=== PATIENT | male | born 1955 | race African-American/Black ===

== ENCOUNTER 2016-06-25 18:15 | Emergency (ER) | payer OTHER ==
[~2016-06-25] VITALS: Ht 167.6 cm; Wt 113.4 kg
[~2016-06-25 18:15] MED LIST: AMLO10TA2 PO; ATOR20TA58 PO; AZIT250T6 PO; BENZ100C PO; CETI10TA22 PO; CYCL10TA2 PO; HYDR115S2 PO; HYDR12.53 PO; LISI1TAB5 PO; LORA10TA3 PO; METO50TA2 PO; NITR0.3T SL; OMEP20TA63 PO; OMEP40CA5 PO; PRED50TA PO; PROAIR HFA8.5 GM IH; PROAIR HFA8.5 GM INH; PROM25TA10 PO
[2016-06-25] MEDS ORDERED: IV NORMAL SALINE 1000ML BAG 1,000 ML IV SCH (19:09)
[2016-06-25] MEDS ORDERED: ONDANSETRON PF 4 MG/2 ML VIAL. IV ONE (19:15)
[2016-06-25] MEDS ORDERED: FENTANYL PF 100 MCG/2 ML VIAL. IV PRN (19:15)
[2016-06-25] MEDS ORDERED: NITROGLYCERIN SUBLINGUAL 0.4 MG BOTTLE OF 25. SL PRN (19:15)
--- NOTE | 2016-06-25 19:15 | PHYS DOC ---
Past Medical History Past Medical History: Arthritis, Asthma, Bronchitis, Diabetes-Type I, GERD, Hypertension Additional Past Medical Histor: CARPAL TUNNEL, GOUT Past Surgical History: Other Additional Past Surgical Histo: "ABD SURGERY" Alcohol Use: Occasionally Drug Use: None Adult General Chief Complaint Chief Complaint: CHEST PAIN HPI HPI Patient is a 60 year old male who presents with complaint of chest pain. Patient states this symptoms started 2 hours prior to arrival. Patient states that his pain is sharp and radiates towards his neck and left shoulder. Patient denies associated nausea or shortness of breath with symptoms. Patient states currently his pain level is 5 out of 10 but states it was worse upon onset. Patient denies history of similar symptoms. Patient has history of hypertension and diabetes mellitus type 2. Patient denies any associated shortness of breath or nausea with his symptoms. Patient took his blood pressure medication and a full strength aspirin prior to arrival but states that this did not help his symptoms. Patient denies any recent cardiac stress testing. Review of Systems Review of Systems Constitutional: Denies fever or chills [] Eyes: Denies change in visual acuity, redness, or eye pain [] HENT: Denies nasal congestion or sore throat [] Respiratory: Denies cough or shortness of breath [] Cardiovascular: Chest pain, denies edema [] GI: Denies abdominal pain, nausea, vomiting, bloody stools or diarrhea [] : Denies dysuria or hematuria [] Musculoskeletal: Denies back pain or joint pain [] Integument: Denies rash or skin lesions [] Neurologic: Denies headache, focal weakness or sensory changes [] Current Medications Current Medications Current Medications Medications (Trade) Dose Ordered Sig/Kamaljit Start Time Stop Time Status Last Admin Dose Admin Fentanyl Citrate 50 mcg 50 mcg PRN Q15MIN PRN 06/25/16 19:15 06/26/16 19:14 Nitroglycerin (Nitrostat) 0.4 mg PRN Q5MIN PRN 06/25/16 19:15 06/26/16 19:14 06/25/16 19:29 0.4 MG Ondansetron HCl (Zofran) 4 mg 1X ONCE 06/25/16 19:15 06/25/16 19:16 DC 06/25/16 19:27 4 MG Sodium Chloride (Iv Sodium Chloride 0.9% 1000ml Bag) 1,000 ml @ 100 mls/hr Q10H 06/25/16 19:09 06/26/16 05:08 06/25/16 19:27 100 MLS/HR Allergies Allergies Allergies Coded Allergies Type Severity Reaction Last Updated Verified No Known Drug Allergies 03/25/13 No Physical Exam Physical Exam Constitutional: Alert, obese, afebrile, hypertensive, appears in mild to moderate discomfort. [] HENT: Normocephalic, atraumatic, bilateral external ears normal, oropharynx moist, no oral exudates, nose normal. [] Eyes: PERRLA, EOMI, conjunctiva normal, no discharge. [] Neck: Normal range of motion, no tenderness, supple, no stridor. [] Cardiovascular:Heart rate regular rhythm, no murmur [] Lungs & Thorax: Bilateral breath sounds clear to auscultation [] Abdomen: Bowel sounds normal, soft, no tenderness, no masses, no pulsatile masses. [] Skin: Warm, dry, no erythema, no rash. [] Back: No tenderness, no CVA tenderness. [] Extremities: No tenderness, no cyanosis, no clubbing, ROM intact, no edema. [] Neurologic: Alert and oriented X 3, normal motor function, normal sensory function, no focal deficits noted. [] Current Patient Data Vital Signs Vital Signs Date Time Temp Pulse Resp B/P Pulse Ox O2 Delivery O2 Flow Rate FiO2 06/25/16 19:55 80 15 163/71 96 Room Air 06/25/16 18:30 98.5 98.5 Lab Values Laboratory Tests Test 06/25/16 19:05 06/25/16 19:35 06/25/16 20:47 White Blood Count 8.0x10^3/uL (4.0-11.0) Red Blood Count 4.64x10^6/uL (4.30-5.70) Hemoglobin 13.7g/dL (13.0-17.5) Hematocrit 40.5% (39.0-53.0) Mean Corpuscular Volume 87fL (79-100) Mean Corpuscular Hemoglobin 30pg (25-35) Mean Corpuscular Hemoglobin Concent 34g/dL (31-37) Red Cell Distribution Width 13.9% (11.5-14.5) Platelet Count 326x10^3/uL (140-400) Neutrophils (%) (Auto) 44% (31-73) Lymphocytes (%) (Auto) 44% (24-48) Monocytes (%) (Auto) 8% (0-9) Eosinophils (%) (Auto) 3% (0-3) Basophils (%) (Auto) 1% (0-3) Neutrophils # (Auto) 3.6x10^3uL (1.8-7.7) Lymphocytes # (Auto) 3.5x10^3/uL (1.0-4.8) Monocytes # (Auto) 0.6x10^3/uL (0.0-1.1) Eosinophils # (Auto) 0.3x10^3/uL (0.0-0.7) Basophils # (Auto) 0.1x10^3/uL (0.0-0.2) Sodium Level 142mmol/L (136-145) Potassium Level 3.8mmol/L (3.5-5.1) Chloride Level 103mmol/L (98-107) Carbon Dioxide Level 27mmol/L (21-32) Anion Gap 12 (6-14) Blood Urea Nitrogen 12mg/dL (8-26) Creatinine 1.0mg/dL (0.7-1.3) Estimated GFR (Cockcroft-Gault) 92.5 Glucose Level 72mg/dL (70-99) Calcium Level 9.1mg/dL (8.5-10.1) Magnesium Level 2.0mg/dL (1.8-2.4) Total Bilirubin 0.4mg/dL (0.2-1.0) Direct Bilirubin 0.1mg/dL (0.0-0.2) Aspartate Amino Transferase (AST) 25U/L (15-37) Alanine Aminotransferase (ALT) 32U/L (16-63) Alkaline Phosphatase 75U/L (46-116) Creatine Kinase 967U/L (39-308) H Creatine Kinase MB (Mass) 6.1ng/mL (0.0-3.6) H Creatine Kinase MB Relative Index 0.6% (0-4) Troponin I Quantitative < 0.017ng/mL (0.000-0.055) < 0.017ng/mL (0.000-0.055) EY-Fbc-R-Type Natriuretic Peptide 35pg/mL (0-124) Total Protein 8.0g/dL (6.4-8.2) Albumin 4.2g/dL (3.4-5.0) Lipase 319U/L (73-393) Urine Collection Type Unknown Urine Color Yellow Urine Clarity Clear Urine pH 7.5 Urine Specific [place] 1.015 Urine Protein Negativemg/dL (NEG-TRACE) Urine Glucose (UA) Negativemg/dL (NEG) Urine Ketones (Stick) Negativemg/dL (NEG) Urine Blood Negative (NEG) Urine Nitrite Negative (NEG) Urine Bilirubin Negative (NEG) Urine Urobilinogen Dipstick 1.0mg/dL (0.2 mg/dL) Urine Leukocyte Esterase Negative (NEG) Urine RBC 0/HPF (0-2) Urine WBC 0/HPF (0-4) Urine Squamous Epithelial Cells Occ/LPF Urine Bacteria 0/HPF (0-FEW) Urine Opiates Screen Neg (NEG) Urine Methadone Screen Neg (NEG) Urine Barbiturates Neg (NEG) Urine Phencyclidine Screen Neg (NEG) Urine Amphetamine/Methamphetamine Neg (NEG) Urine Benzodiazepines Screen Neg (NEG) Urine Cocaine Screen Neg (NEG) Urine Cannabinoids Screen Neg (NEG) Urine Ethyl Alcohol Neg (NEG) Laboratory Tests 06/25/16 19:05 Laboratory Tests 06/25/16 19:05 EKG EKG Interpreted by me: Heart rate 87, sinus rhythm, normal intervals, normal axis, no acute ST/T-wave abnormalities present [] Radiology/Procedures Radiology/Procedures One view AP chest x-ray interpreted by me: No infiltrate, no effusion, normal cardiac silhouette [] Course & Med Decision Making Course & Med Decision Making Pertinent Labs and Imaging studies reviewed. (See chart for details) The patient was given nitroglycerin in the emergency department which fully resolved the patient's pain symptoms. After speaking with the patient, he stated that he did not want to be admitted to the hospital and would like to go home. Considering the patient's pain has completely resolved at this time and since the patient has agreed to follow-up in 2-3 days with cardiology for follow -up and outpatient stress testing, the patient was discharged from the emergency department with recommendation to take full strength daily aspirin and patient was given a prescription for nitroglycerin. The patient was referred to Dr. Rivers for follow-up in 2-3 days and recommended to return to emergency department for any worsening symptoms. Patient voiced understanding and in agreement with treatment plan. Dragon Disclaimer Dragon Disclaimer This electronic medical record was generated, in whole or in part, using a voice recognition dictation system. Departure Departure Impression: Primary Impression: Chest pain Additional Impression: Essential hypertension Disposition: HOME, SELF-CARE Condition: STABLE Referrals: UNKNOWN PCP NAME (PCP) Patient Instructions: Chest Pain (Nonspecific) Additional Instructions: Follow-up in 2-[address] Rivers of cardiology for outpatient stress testing. Be sure to take a full strength 325 mg aspirin once a day until you have followed up with cardiology. Return to the emergency department for any worsening symptoms. Scripts Nitroglycerin (NITROGLYCERIN SubLingual)0.4 Mg Tab.subl0.4 Mg SL PRN Q5MIN PRN CHEST PAIN #1 BOTTLE Call 911 and come to the emergency department if you continue to have pain after 3 doses. Prov:ELEONORA RUTLEDGE MD 06/25/16 Problem Qualifiers Primary Impression: Chest pain Chest pain type: unspecified Qualified Code: R07.9 - Chest pain, unspecified ELEONORA RUTLEDGE MD Jun 25, 2016 19:15
[2016-06-25 19:19] LABS: BASO # 0.1 x10^3/uL (0.0-0.2); BASO % 1 % (0-3); EOS % 3 % (0-3); HEMATOCRIT 40.5 % (39.0-53.0); HEMOGLOBIN 13.7 g/dL (13.0-17.5); LYMPH # 3.5 x10^3/uL (1.0-4.8); LYMPH % 44 % (24-48); MEAN CORPUSCULAR HEMOGLOBIN 30 pg (25-35); MEAN CORPUSCULAR HGB CONC 34 g/dL (31-37); MEAN CORPUSCULAR VOLUME 87 fL (79-100); MONO % 8 % (0-9); NEUT % 44 % (31-73); PLATELET COUNT 326 x10^3/uL (140-400); RED BLOOD COUNT 4.64 x10^6/uL (4.30-5.70); RED CELL DISTRIBUTION WIDTH 13.9 % (11.5-14.5)
[2016-06-25 19:32] LABS: CALCIUM 9.1 mg/dL (8.5-10.1); GFR 92.5; POTASSIUM 3.8 mmol/L (3.5-5.1)
[2016-06-25 19:38] LABS: ALBUMIN 4.2 g/dL (3.4-5.0); DIRECT BILIRUBIN 0.1 mg/dL (0.0-0.2); TOTAL BILIRUBIN 0.4 mg/dL (0.2-1.0)
[2016-06-25 19:51] LABS: BILIRUBIN,URINE NEGATIVE (NEG); GLUCOSE,URINE NEGATIVE (NEG); NITRITE,URINE NEGATIVE (NEG); PH,URINE 7.5; PROTEIN,URINE NEGATIVE (NEG-TRACE)
[2016-06-25 19:52] LABS: CKMB INDEX 0.6 % (0-4); CKMB MASS 6.1 ng/mL (0.0-3.6)
[2016-06-25 19:56] LABS: BARBITURATES NEG (NEG); BENZODIAZEPINES NEG (NEG); CANNABINOIDS NEG (NEG); COCAINE NEG (NEG); METHADONE NEG (NEG); OPIATES NEG (NEG); PHENCYCLIDINE NEG (NEG)
[2016-06-25 19:58] LABS: ETHANOL, URINE NEG (NEG)
[2016-06-25 19:59] LABS: BACTERIA,URINE 0 /HPF (0-FEW); RBC,URINE 0 /HPF (0-2); SQUAMOUS EPITHELIAL CELL,UR OCC /LPF; WBC,URINE 0 /HPF (0-4)
[2016-06-25 21:23] LABS: CKMB INDEX 0.6 % (0-4)
[2016-06-25] MEDS ORDERED: NITR0.4T6 SL (21:33)
[2016-06-25 22:00] VITALS: BP 158/79
--- NOTE | 2016-06-26 06:25 | EKG ---
[facility] [address] [place] [address] Test Date: 2016-06-25 Test Time: 18:24:17 Pat Name: RANDY MEDRANO Department: Room: Gender: M Verifier: : [id number] Requested By: ELEONORA RUTLEDGE Order Number: [id number] Reading MD: Elise Mendieta Measurements Intervals [place] Rate: 87 P: 64 IN: 166 QRS: 12 QRSD: 84 T: 32 QT: 350 QTc: 422 Interpretive Statements SINUS RHYTHM LEFT ATRIAL ABNORMALITY ABNORMAL ECG RI6.01 Compared to ECG 06/18/2015 23:31:35 Atrial abnormality now present Electronically Signed On 06-28-2016 18:47:50 CDT by Elise Mendieta
--- NOTE | 2016-06-26 07:54 | RAD ---
Indication chest pain. Hypertension. Diabetes. A single view of the chest is compared to a study 03/10/2016. Heart size is slightly enlarged but unchanged relative to the previous exam. There is no gross congestive heart failure. An acute parenchymal infiltrate or significant change in the appearance of the chest compared to the previous exam is not seen. IMPRESSION: No acute finding. No significant change
== END 2016-06-25 22:09 | disposition home or self-care (01) ==
LOC: ER 18:15
DX: R07.89 Other chest pain (principal); I10 Essential (primary) hypertension; E66.9 Obesity, unspecified; E11.9 Type 2 diabetes mellitus without complications; M19.90 Unspecified osteoarthritis, unspecified site; J45.909 Unspecified asthma, uncomplicated; K21.9 Gastro-esophageal reflux disease without esophagitis; M10.9 Gout, unspecified; Z68.41 Body mass index [BMI] 40.0-44.9, adult; Z79.899 Other long term (current) drug therapy
CPT/HCPCS: 36415; 71010; 80048; 80076; 80305; 80320; 81001; 82553; 83690; 83735; 83880; 84484; 85027; 93005; 96361; 96374; 99285; J2405; J7030; G0481

== ENCOUNTER 2016-09-24 13:03 | Emergency (ER) | payer OTHER ==
[~2016-09-24] VITALS: Ht 167.6 cm; Wt 104.3 kg
[~2016-09-24 13:03] MED LIST changes: +NITR0.4T22 SL
--- NOTE | 2016-09-24 13:44 | EKG ---
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
--- NOTE | 2016-09-24 14:03 | RAD ---
Portable AP upright view CXR: Clinical indications: Shortness of air. Leg swelling for one month. Comparison: June 25, 2016. Findings: There is a chronic infiltrate within the medial left lung base versus a hiatal hernia. No pleural effusion or pneumothorax is seen. The heart size, pulmonary vasculature, mediastinum and both chanel are otherwise stable.. Impression: Chronic medial left lung base infiltrate versus a hiatal hernia. No new finding..
[2016-09-24 14:05] LABS: BASO # 0.1 x10^3/uL (0.0-0.2); BASO % 1 % (0-3); EOS % 7 % (0-3); HEMATOCRIT 36.3 % (39.0-53.0); HEMOGLOBIN 12.2 g/dL (13.0-17.5); LYMPH # 3.1 x10^3/uL (1.0-4.8); LYMPH % 35 % (24-48); MEAN CORPUSCULAR HEMOGLOBIN 29 pg (25-35); MEAN CORPUSCULAR HGB CONC 34 g/dL (31-37); MEAN CORPUSCULAR VOLUME 85 fL (79-100); MONO % 5 % (0-9); NEUT % 53 % (31-73); PLATELET COUNT 369 x10^3/uL (140-400); RED BLOOD COUNT 4.27 x10^6/uL (4.30-5.70); RED CELL DISTRIBUTION WIDTH 13.5 % (11.5-14.5)
[2016-09-24 14:17] LABS: CREATININE 1.2 mg/dL (0.7-1.3); GFR 74.7; POTASSIUM 3.7 mmol/L (3.5-5.1)
[2016-09-24 14:23] LABS: ALBUMIN 3.9 g/dL (3.4-5.0); TOTAL BILIRUBIN 0.2 mg/dL (0.2-1.0); TOTAL PROTEIN 7.8 g/dL (6.4-8.2)
[2016-09-24 14:30] LABS: CKMB MASS 3.7 ng/mL (0.0-3.6)
--- NOTE | 2016-09-24 14:43 | RAD ---
Indication: Left leg swelling. Grayscale, color-flow and duplex Doppler evaluation of the left lower extremity deep venous system was performed. There is no evidence of a left lower extremity DVT. The left lower extremity deep venous system demonstrates normal compressibility with normal response to augmentation and Valsalva. No fluid collection is seen. There is an enlarged lymph node in the left groin measuring 3.0 x 1.2 x 2.5 cm, indeterminate. Impression: 1. No evidence of left lower extremity DVT. 2. Enlarged left groin lymph node, indeterminate.
[2016-09-24 15:27] VITALS: BP 141/73
[2016-09-24] MEDS ORDERED: DOXY100T PO (15:29)
[2016-09-24] MEDS ORDERED: HYDR-971 PO (15:29)
--- NOTE | 2016-09-24 15:29 | PHYS DOC ---
Past Medical History Past Medical History: Arthritis, Asthma, Bronchitis, Diabetes-Type I, GERD, Hypertension, Other Additional Past Medical Histor: CARPAL TUNNEL, GOUT Past Surgical History: Other Additional Past Surgical Histo: "ABD SURGERY" Additional Information: 0.25 ppd Alcohol Use: Occasionally Drug Use: None Adult General Chief Complaint Chief Complaint: LOWER EXTREMITY SWELLING HPI HPI Patient is a 61 year old male brought to the ED by his caregiver with the complaint of left leg pain and swelling. Previously, both of his legs were swollen, now it is just his left leg. He thinks it's been swollen for 2 or 3 months, worse for about one month and the pain has been for about 1 month. He has not specifically had fever or chills but he has been cold at times. He's had some shortness of air for 1 month, no chest pain. He's had a little cough that is sometimes productive of a little bit of phlegm. He does have COPD. Patient's primary care provider is at . He has been taking his medications as prescribed. Medications include metformin Ibuprofen 800 mg Amlodipine 10 mg Atorvastatin 40 mg Cetirizine Lisinopril Pantoprazole Amitriptyline Hydrochlorothiazide Spiriva and pro-air inhalers Review of Systems Review of Systems Constitutional: Denies fever or chills but he has felt cold Eyes: Denies change in visual acuity, redness, or eye pain [] HENT: Denies nasal congestion or sore throat [] Respiratory: Mild cough and mild shortness of air Cardiovascular: Denies chest pain GI: Denies abdominal pain, nausea, vomiting, bloody stools or diarrhea [] : Denies dysuria or hematuria [] Musculoskeletal: As in history of present illness Integument: States he had some redness of the skin on his penis Neurologic: Denies headache, focal weakness or sensory changes [] Current Medications Current Medications Current Medications Medications (Trade) Dose Ordered Sig/Kamaljit Start Time Stop Time Status Last Admin Dose Admin Acetaminophen/ Hydrocodone Bitart (Lortab 7.5/325) 1 tab 1X ONCE 09/24/16 15:30 09/24/16 15:31 DC Doxycycline Hyclate (Vibra-Tab) 100 mg 1X ONCE 09/24/16 15:30 09/24/16 15:31 DC Allergies Allergies Allergies Coded Allergies Type Severity Reaction Last Updated Verified codeine Allergy Mild "irritates tip of penis" 09/24/16 Yes Physical Exam Physical Exam Constitutional: Well developed, well nourished, no acute distress, non-toxic appearance. Alert, appropriate, mentating normally. HENT: Normocephalic, atraumatic, bilateral external ears normal, nose normal. [ ] Eyes: conjunctiva normal, no discharge. [] Neck: Normal range of motion, no stridor. [] Cardiovascular:Heart rate regular rhythm, no murmur [] Lungs & Thorax: Clear to auscultation without rales or wheezes Abdomen: Bowel sounds normal, soft, no tenderness, no masses, no pulsatile masses. [] Skin: Warm, dry, no erythema, no rash. [] Extremities: Left leg: Knee and above is normal. Below the knee is mildly swollen with increased warmth, increased redness, tender to palpation. There is evidence of chronic swelling with skin thickening and discoloration. Foot is not involved with the swelling or warmth. Distal neurovascular intact. Right leg is unremarkable without swelling, warmth, or redness. Neurologic: Alert and oriented X 3, normal motor function, normal sensory function, no focal deficits noted. [] Current Patient Data Vital Signs Vital Signs Date Time Temp Pulse Resp B/P (MAP) Pulse Ox O2 Delivery O2 Flow Rate FiO2 09/24/16 15:27 74 21 141/73 (95) 92 Room Air 09/24/16 13:10 97.8 97.8 Lab Values Laboratory Tests Test 09/24/16 13:55 White Blood Count 9.0 x10^3/uL (4.0-11.0) Red Blood Count 4.27 x10^6/uL (4.30-5.70) L Hemoglobin 12.2 g/dL (13.0-17.5) L Hematocrit 36.3 % (39.0-53.0) L Mean Corpuscular Volume 85 fL (79-100) Mean Corpuscular Hemoglobin 29 pg (25-35) Mean Corpuscular Hemoglobin Concent 34 g/dL (31-37) Red Cell Distribution Width 13.5 % (11.5-14.5) Platelet Count 369 x10^3/uL (140-400) Neutrophils (%) (Auto) 53 % (31-73) Lymphocytes (%) (Auto) 35 % (24-48) Monocytes (%) (Auto) 5 % (0-9) Eosinophils (%) (Auto) 7 % (0-3) H Basophils (%) (Auto) 1 % (0-3) Neutrophils # (Auto) 4.7 x10^3uL (1.8-7.7) Lymphocytes # (Auto) 3.1 x10^3/uL (1.0-4.8) Monocytes # (Auto) 0.4 x10^3/uL (0.0-1.1) Eosinophils # (Auto) 0.6 x10^3/uL (0.0-0.7) Basophils # (Auto) 0.1 x10^3/uL (0.0-0.2) D-Dimer (Babs) 0.53 ug/mlFEU (0.00-0.50) H Sodium Level 138 mmol/L (136-145) Potassium Level 3.7 mmol/L (3.5-5.1) Chloride Level 101 mmol/L (98-107) Carbon Dioxide Level 30 mmol/L (21-32) Anion Gap 7 (6-14) Blood Urea Nitrogen 15 mg/dL (8-26) Creatinine 1.2 mg/dL (0.7-1.3) Estimated GFR (Cockcroft-Gault) 74.7 BUN/Creatinine Ratio 13 (6-20) Glucose Level 181 mg/dL (70-99) H Calcium Level 9.0 mg/dL (8.5-10.1) Total Bilirubin 0.2 mg/dL (0.2-1.0) Aspartate Amino Transferase (AST) 21 U/L (15-37) Alanine Aminotransferase (ALT) 33 U/L (16-63) Alkaline Phosphatase 92 U/L (46-116) Creatine Kinase 710 U/L (39-308) H Creatine Kinase MB (Mass) 3.7 ng/mL (0.0-3.6) H Creatine Kinase MB Relative Index 0.5 % (0-4) Troponin I Quantitative 0.023 ng/mL (0.000-0.055) [id number]-[id number]-S-Type Natriuretic Peptide 27 pg/mL (0-124) Total Protein 7.8 g/dL (6.4-8.2) Albumin 3.9 g/dL (3.4-5.0) Albumin/Globulin Ratio 1.0 (1.0-1.7) Laboratory Tests 09/24/16 13:55 Laboratory Tests 09/24/16 13:55 EKG EKG 12-lead EKG read by me. Sinus rhythm. Heart rate 84. There are no acute ST or T wave changes indicative of ischemia or infarction. No STEMI. 1318 [] Radiology/Procedures Radiology/Procedures One view portable chest x-ray read by the radiologist. No acute findings. No pulmonary edema. There is a chronic infiltrate in the medial left lung base versus a hiatal hernia, unchanged since May. Venous Doppler of the left lower extremity. Read by the radiologist. No evidence of DVT. Enlarged left groin lymph node. [] Course & Med Decision Making Course & Med Decision Making Pertinent Labs and Imaging studies reviewed. (See chart for details) 61-year-old male presents with one-month history of pain and swelling to the left leg. Evaluation negative for DVT. It's warm and red, we will treat for cellulitis. There is no evidence of congestive heart failure on labs or chest x- ray. The swelling and pain or unilateral. There is a component of pain and he also has warmth and enlarged groin lymph node on ultrasound so I believe cellulitis is the likely diagnosis. Discussed this with the patient. We will start him on doxycycline. See instructions for plan [] Dragyoung Disclaimer Dragon Disclaimer This electronic medical record was generated, in whole or in part, using a voice recognition dictation system. Departure Departure Impression: Primary Impression: Cellulitis of left leg Disposition: 01 HOME, SELF-CARE Condition: STABLE Referrals: NO PCP (PCP) Patient Instructions: Cellulitis, [id number] Additional Instructions: Stay off of your leg as much as possible and keep it elevated as much as possible to help with the swelling. You had one dose of antibiotic here, your next dose is due at bedtime tonight. After that, take one every 12 hours. Scripts Hydrocodone/Apap 5-325 (NORCO 5-325 TABLET) 1 Each Tablet 1-2 TAB PO Q4-6HRS for left leg pain, cellulitis, #12 TAB Prov: TATIANA CUELLAR MD 09/24/16 Doxycycline Hyclate (DOXYCYCLINE HYCLATE) 100 Mg Tablet 1 TAB PO BID for cellulitis, #20 TAB Prov: TATIANA CUELLAR MD 09/24/16 TATIANA CUELLAR MD Sep 24, 2016 15:29
[2016-09-24] MEDS ORDERED: HYDROcodone/APAP 7.5/325MG 1 TAB TABLET PO ONE (15:30)
[2016-09-24] MEDS ORDERED: DOXYCYCLINE HYCLATE 100 MG TABLET PO ONE (15:30)
== END 2016-09-24 15:47 | disposition home or self-care (01) ==
LOC: ER 13:03
DX: L03.116 Cellulitis of left lower limb (principal); J44.9 Chronic obstructive pulmonary disease, unspecified; M19.90 Unspecified osteoarthritis, unspecified site; K21.9 Gastro-esophageal reflux disease without esophagitis; I10 Essential (primary) hypertension; M10.9 Gout, unspecified; E10.9 Type 1 diabetes mellitus without complications; F17.200 Nicotine dependence, unspecified, uncomplicated; Z88.5 Allergy status to narcotic agent
CPT/HCPCS: 36415; 71010; 80053; 82553; 83880; 84484; 85027; 85379; 93005; 93971; 99285-25

== ENCOUNTER 2016-10-02 15:53 | Emergency (ER) | payer OTHER ==
[~2016-10-02] VITALS: Ht 167.6 cm; Wt 104.3 kg
[~2016-10-02 15:53] MED LIST changes: +DOXY100T PO; +HYDR-971 PO
[2016-10-02 16:11] VITALS: BP 139/80
[2016-10-02] MEDS ORDERED: DOXY100T PO (16:53)
--- NOTE | 2016-10-02 16:53 | PHYS DOC ---
Past Medical History Past Medical History: Arthritis, Asthma, Bronchitis, Diabetes-Type II, GERD, Hypertension, Other Additional Past Medical Histor: CARPAL TUNNEL, GOUT,CELLULITIS Past Surgical History: Other Additional Past Surgical Histo: "ABD SURGERY" Additional Information: 3 TO 4 CIGARETTES A DAY Alcohol Use: Occasionally Drug Use: None Adult General Chief Complaint Chief Complaint: MEDICATION REFILL HPI HPI Patient is a 61 year old male who I saw on 09/24 with left leg cellulitis, returns stating that his cellulitis is a lot better but not completely gone and he is concerned because he is almost out of antibiotics. His pain right now is an 8 out of 10. He states his leg is a lot better. Denies fever or chills, denies nausea or vomiting. He's been trying to evade as much as he can. He has been taking his antibiotic as prescribed. PCP none, patient has been planning to make an appointment with the PCP, he previously was seeing someone at . Review of Systems Review of Systems Constitutional: Denies fever or chills [] GI: Denies abdominal pain, nausea, vomiting, bloody stools or diarrhea [] Musculoskeletal: Left leg as in history of present illness Integument: Denies rash or skin lesions [] Allergies Allergies Allergies Coded Allergies Type Severity Reaction Last Updated Verified codeine Allergy Mild "irritates tip of penis" 09/24/16 Yes Physical Exam Physical Exam Constitutional: Well developed, well nourished, no acute distress, non-toxic appearance. Alert, mentating normally. HENT: Normocephalic, atraumatic, bilateral external ears normal, nose normal. [ ] Eyes: conjunctiva normal, no discharge. [] Neck: Normal range of motion, no stridor. [] Skin: Warm, dry, no erythema, no rash. [] Extremities: Right leg: No tenderness, no cyanosis, no clubbing, ROM intact, no edema. Left leg: Mild swelling and mild redness of the distal half of the lower leg, tenderness to palpation, increase in warmth. Foot is not swollen, not involved with the cellulitis, ankle is not swollen. Neurologic: Alert and oriented X 3, normal motor function, normal sensory function, no focal deficits noted. [] Current Patient Data Vital Signs Vital Signs Date Time Temp Pulse Resp B/P (MAP) Pulse Ox O2 Delivery O2 Flow Rate FiO2 10/02/16 16:11 98.1 84 20 139/80 (99) 95 Room Air 98.1 EKG EKG [] Radiology/Procedures Radiology/Procedures [] Course & Med Decision Making Course & Med Decision Making Pertinent Labs and Imaging studies reviewed. (See chart for details) 61-year-old male presents with improving but not altogether better cellulitis of the left leg. He has some chronic problems with circulation. I discussed with the patient admission for IV antibiotics versus continuing by mouth antibiotics as an outpatient. He would prefer not to be admitted. He feels like his leg is "a lot better" but he thinks he needs to continue antibiotics for longer, he is almost out. Also, almost out of pain pills. We will continue doxycycline for another course, I emphasized elevation and return precautions. [] Dragon Disclaimer Dragon Disclaimer This electronic medical record was generated, in whole or in part, using a voice recognition dictation system. Departure Departure Impression: Primary Impression: Cellulitis of left leg Disposition: HOME, SELF-CARE Condition: STABLE Referrals: NO PCP (PCP) Patient Instructions: Cellulitis, [id number] Additional Instructions: Continue to keep your leg elevated to help with swelling. If you do have a fever, chills, vomiting, return to emergency, you might have to have IV antibiotics if that happens. Scripts Hydrocodone/Apap 5-325 (NORCO 5-325 TABLET) 1 Each Tablet 1-2 TAB PO Q4-6HRS for leg pain, #20 TAB Prov: TATIANA CUELLAR MD 10/02/16 Doxycycline Hyclate (DOXYCYCLINE HYCLATE) 100 Mg Tablet 1 TAB PO BID for cellulitis, #20 TAB Prov: TATIANA CUELLAR MD 10/02/16 TATIANA CUELLAR MD Oct 02, 2016 16:53
[2016-10-02] MEDS ORDERED: HYDR-971 PO (17:29)
== END 2016-10-02 17:33 | disposition home or self-care (01) ==
LOC: ER 15:53
DX: L03.116 Cellulitis of left lower limb (principal); J45.909 Unspecified asthma, uncomplicated; E11.9 Type 2 diabetes mellitus without complications; I10 Essential (primary) hypertension; K21.9 Gastro-esophageal reflux disease without esophagitis; M10.9 Gout, unspecified; M19.90 Unspecified osteoarthritis, unspecified site; Z98.890 Other specified postprocedural states; G56.00 Carpal tunnel syndrome, unspecified upper limb; F17.210 Nicotine dependence, cigarettes, uncomplicated; Z88.5 Allergy status to narcotic agent
CPT/HCPCS: 99283

== ENCOUNTER 2016-10-28 14:08 | Emergency (ER) | payer OTHER ==
[~2016-10-28] VITALS: Ht 167.6 cm; Wt 99.8 kg
[2016-10-28 14:25] VITALS: BP 138/77
--- NOTE | 2016-10-28 14:33 | PHYS DOC ---
Past Medical History Past Medical History: Arthritis, Asthma, Bronchitis, Diabetes-Type II, GERD, Hypertension, Other Additional Past Medical Histor: CARPAL TUNNEL, GOUT,CELLULITIS Past Surgical History: Other Additional Past Surgical Histo: "ABD SURGERY" Alcohol Use: Occasionally Drug Use: None Adult General Chief Complaint Chief Complaint: Neck Pain [facility] HPI Patient is a 61 year old male presents to the emergency department stating his upper back and his neck hurts. He states that it started for the last week. He states that he had been taken 800 mg of ibuprofen which had been help in bed in his no longer relieving the discomfort. Patient then received a phone call and felt that it was more important to take the phone call them to finish his assessment and talking with me about his complaints. Patient states that he woke up about 1 week ago with the neck pain and discomfort. He denies any trauma injury to his neck. He states his been taken ibuprofen for the pain and discomfort. He does not feel that he should be taken ibuprofen. Patient states that he has been told not to take ibuprofen for long period of time. Because it is not good for you. Patient denies any numbness or tingling into his lower extremities. Patient has equal nitroglycerin neutralizer bilaterally. Review of Systems Review of Systems Constitutional: Denies fever or chills [] Eyes: Denies change in visual acuity, redness, or eye pain [] HENT: Denies nasal congestion or sore throat [] Respiratory: Denies cough or shortness of breath [] Cardiovascular: No additional information not addressed in HPI [] GI: Denies abdominal pain, nausea, vomiting, bloody stools or diarrhea [] : Denies dysuria or hematuria [] Musculoskeletal: Denies back pain or joint pain. Upper back and neck pain Integument: Denies rash or skin lesions [] Neurologic: Denies headache, focal weakness or sensory changes [] Endocrine: Denies polyuria or polydipsia [] Allergies Allergies Allergies Coded Allergies Type Severity Reaction Last Updated Verified codeine Allergy Mild "irritates tip of penis" 10/28/16 Yes Physical Exam Physical Exam Constitutional: Well developed, well nourished, no acute distress, non-toxic appearance. [] HENT: Normocephalic, atraumatic, bilateral external ears normal, oropharynx moist, no oral exudates, nose normal. [] Eyes: PERRLA, EOMI, conjunctiva normal, no discharge. [] Neck: Normal range of motion, no tenderness, supple, no stridor. [] Cardiovascular:Heart rate regular rhythm, no murmur [] Lungs & Thorax: Bilateral breath sounds clear to auscultation [] Abdomen: Bowel sounds normal, soft, no tenderness, no masses, no pulsatile masses. [] Skin: Warm, dry, no erythema, no rash. [] Back: No cervical spine, thoracic spine tenderness, no step-offs, no crepitus no deformity, no CVA tenderness. Patient with tenderness in the upper back and neck area. Extremities: No tenderness, no cyanosis, no clubbing, ROM intact, no edema. [] Neurologic: Alert and oriented X 3, normal motor function, normal sensory function, no focal deficits noted. [] Psychologic: Affect normal, judgement normal, mood normal. [] Current Patient Data Vital Signs Vital Signs Date Time Temp Pulse Resp B/P (MAP) Pulse Ox O2 Delivery O2 Flow Rate FiO2 10/28/16 14:25 98.5 85 18 96 Room Air 98.5 EKG EKG [] Radiology/Procedures Radiology/Procedures [] Course & Med Decision Making Course & Med Decision Making Pertinent Labs and Imaging studies reviewed. (See chart for details) Spoke with patient in regards to using Ibuprofen. Patient states he feels uncomfortable with using Ibuprofen. Patient will be placed on prednisone and flexeril. He was instructed flexeril will cause drowsiness do not take if you need to be alert and oriented. Patient agrees with discharge instructions, treatment regimen and followup recommendations. Patient provided with signs and symptoms to return to the emergency department. [] Dragon Disclaimer Dragon Disclaimer This electronic medical record was generated, in whole or in part, using a voice recognition dictation system. Departure Departure Impression: Primary Impression: Upper back pain Disposition: 01 HOME, SELF-CARE Condition: STABLE Referrals: NO PCP (PCP) Patient Instructions: Back Pain, Adult, [id number] Additional Instructions: Activity as tolerated Medication as prescribed Flexeril will cause drowsiness do not take if you need to be alert and oriented Ice packs on 20 minutes off 20 minutes several times a day Followup with your primary care provider in 5-7 days Return to emergency department as needed for signs and symptoms that becomes worse. Scripts Prednisone (PREDNISONE) 20 Mg Tablet 40 MG PO DAILY, #14 TAB Prov: SHERRY FERNANDEZ APRN 10/28/16 Cyclobenzaprine Hcl (CYCLOBENZAPRINE HCL) 10 Mg Tablet 10 MG PO TID, #30 TAB Prov: SHERRY FERNANDEZ APRN 10/28/16 SHERRY FERNANDEZ APRN Oct 28, 2016 14:33
[2016-10-28] MEDS ORDERED: PRED20TA PO (15:09)
[2016-10-28] MEDS ORDERED: CYCL10TA2 PO (15:09)
== END 2016-10-28 15:14 | disposition home or self-care (01) ==
LOC: ER 14:08
DX: M54.6 Pain in thoracic spine (principal); M54.2 Cervicalgia; M19.90 Unspecified osteoarthritis, unspecified site; J45.909 Unspecified asthma, uncomplicated; E11.9 Type 2 diabetes mellitus without complications; K21.9 Gastro-esophageal reflux disease without esophagitis; I10 Essential (primary) hypertension; M10.9 Gout, unspecified; Z88.5 Allergy status to narcotic agent
CPT/HCPCS: 99283

== ENCOUNTER 2016-11-02 21:58 | Emergency (ER) | payer OTHER ==
[~2016-11-02] VITALS: Ht 167.6 cm; Wt 113.4 kg
[~2016-11-02 21:58] MED LIST changes: +PRED20TA PO
[2016-11-02 22:15] VITALS: BP 159/88
--- NOTE | 2016-11-02 22:33 | PHYS DOC ---
Past Medical History Past Medical History: Arthritis, Asthma, Bronchitis, Diabetes-Type II, GERD, Hypertension, Other Additional Past Medical Histor: CARPAL TUNNEL, GOUT,CELLULITIS Past Surgical History: Other Additional Past Surgical Histo: "ABD SURGERY" Alcohol Use: Occasionally Drug Use: None Adult General Chief Complaint Chief Complaint: SHOULDER INJURY HPI HPI Patient is a 61 year old male presents to the emergency department for the second time since October 28. He was seen here for the same upper back and neck pain and discomfort. He was provided with Flexeril to take as needed for muscle spasms and pain as well as prednisone and was recommended to take ibuprofen. Patient states that he has been taken the Flexeril as prescribed. He states it has been helping with the pain and discomfort. He states that he has not followed up with a primary care physician. Patient denies any history of trauma or injury. Patient states that he is here because he would like us Flexeril refilled. Explained that this is happened forming and he needs to follow-up with a primary care physician. Patient also appears to be very drowsy and has to have sentences repeated 2-3 times before he understands what is being said. Review of Systems Review of Systems Constitutional: Denies fever or chills [] Eyes: Denies change in visual acuity, redness, or eye pain [] HENT: Denies nasal congestion or sore throat [] Respiratory: Denies cough or shortness of breath [] Cardiovascular: No additional information not addressed in HPI [] GI: Denies abdominal pain, nausea, vomiting, bloody stools or diarrhea [] : Denies dysuria or hematuria [] Musculoskeletal: Bilateral upper back pain and discomfort. Denies any joint pain Integument: Denies rash or skin lesions [] Neurologic: Denies headache, focal weakness or sensory changes [] Endocrine: Denies polyuria or polydipsia [] Allergies Allergies Allergies Coded Allergies Type Severity Reaction Last Updated Verified codeine Allergy Mild "irritates tip of penis" 10/28/16 Yes Physical Exam Physical Exam Constitutional: Well developed, well nourished, no acute distress, non-toxic appearance. [] HENT: Normocephalic, atraumatic, bilateral external ears normal, oropharynx moist, no oral exudates, nose normal. [] Eyes: PERRLA, EOMI, conjunctiva normal, no discharge. [] Neck: Normal range of motion, no tenderness, supple, no stridor. [] Cardiovascular:Heart rate regular rhythm, no murmur [] Lungs & Thorax: Bilateral breath sounds clear to auscultation [] Skin: Warm, dry, no erythema, no rash. [] Back: Patient with bilateral upper back area discomfort the trapezoid area. No spinal discomfort noted in the thoracic area no crepitus no deformities and no step-offs noted. 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 Extremities: No tenderness, no cyanosis, no clubbing, ROM intact, no edema. [] Neurologic: Alert and oriented X 3, normal motor function, normal sensory function, no focal deficits noted. [] Psychologic: Affect normal, judgement normal, mood normal. [] Current Patient Data Vital Signs Vital Signs Date Time Temp Pulse Resp B/P (MAP) Pulse Ox O2 Delivery O2 Flow Rate FiO2 11/02/16 22:15 97.9 74 18 98 Room Air 97.9 EKG EKG [] Radiology/Procedures Radiology/Procedures [] Course & Med Decision Making Course & Med Decision Making Pertinent Labs and Imaging studies reviewed. (See chart for details) Patient was instructed to continue to use the Flexeril finish with steroids and follow-up with a primary care physician or an orthopedic for further evaluation. Patient was instructed that he may need to have an MRI for further evaluation area patient was provided with discharge instructions, treatment regimens and follow-up recommendations. Signs and symptoms to return back to the emergency department as been provided. Patient agrees with discharge instructions treatment regimens and follow-up recommendations. [] Dragon Disclaimer Dragon Disclaimer This electronic medical record was generated, in whole or in part, using a voice recognition dictation system. Departure Departure Impression: Primary Impression: Upper back pain Disposition: HOME, SELF-CARE Condition: STABLE Referrals: NO PCP (PCP) SIOBHAN STEWART II, MD Patient Instructions: Back Pain, Adult, [id number] Additional Instructions: Activity as tolerated. Medications as prescribed in which you have been given previously. Ice packs on 20 minutes off 20 minutes several times a day. Warm packs may also help with the pain and discomfort. Gentle massages may also help. Follow-up with a primary care physician or orthopedic within the next week. Return to the emergency department as needed for signs and symptoms of become worse. SHERRY FERNANDEZ WOOL BATTING WORKER Nov 02, 2016 22:33
== END 2016-11-02 22:40 | disposition home or self-care (01) ==
LOC: ER 21:58
DX: M54.6 Pain in thoracic spine (principal); M54.2 Cervicalgia; M19.90 Unspecified osteoarthritis, unspecified site; J45.909 Unspecified asthma, uncomplicated; I10 Essential (primary) hypertension; E11.9 Type 2 diabetes mellitus without complications; K21.9 Gastro-esophageal reflux disease without esophagitis; M10.9 Gout, unspecified; G56.00 Carpal tunnel syndrome, unspecified upper limb; Z88.5 Allergy status to narcotic agent
CPT/HCPCS: 99283

== ENCOUNTER 2017-02-10 02:08 | Emergency (ER) | payer OTHER ==
[~2017-02-10] VITALS: Ht 167.6 cm; Wt 90.7 kg
[2017-02-10] MEDS ORDERED: methylPREDNISolone SOD SUCC PF 125 MG/2 ML VIAL. IV ONE (03:00)
[2017-02-10] MEDS ORDERED: IPRATRPIUM/ALBUTEROL 0.5/2.5MG 3 ML NEBU. NEB ONE (03:00)
[2017-02-10] MEDS ORDERED: AZITHROMYCIN 250 MG TABLET. PO ONE ×2 (03:00→04:30)
[2017-02-10 03:07] LABS: BASO # 0.1 x10^3/uL (0.0-0.2); BASO % 2 % (0-3); EOS % 4 % (0-3); HEMATOCRIT 38.2 % (39.0-53.0); LYMPH # 2.8 x10^3/uL (1.0-4.8); LYMPH % 32 % (24-48); MEAN CORPUSCULAR HEMOGLOBIN 29 pg (25-35); MEAN CORPUSCULAR HGB CONC 34 g/dL (31-37); MEAN CORPUSCULAR VOLUME 86 fL (79-100); MONO % 7 % (0-9); NEUT % 56 % (31-73); PLATELET COUNT 303 x10^3/uL (140-400); RED BLOOD COUNT 4.42 x10^6/uL (4.30-5.70); RED CELL DISTRIBUTION WIDTH 14.9 % (11.5-14.5); WHITE BLOOD COUNT 8.8 x10^3/uL (4.0-11.0)
[2017-02-10 03:18] LABS: CALCIUM 9.3 mg/dL (8.5-10.1); CREATININE 0.9 mg/dL (0.7-1.3); GFR 104.2; POTASSIUM 3.1 mmol/L (3.5-5.1)
[2017-02-10 03:24] LABS: TOTAL BILIRUBIN 0.3 mg/dL (0.2-1.0); TOTAL PROTEIN 8.2 g/dL (6.4-8.2)
[2017-02-10 03:43] VITALS: BP 196/132
[2017-02-10] MEDS ORDERED: PRED50TA PO (04:09)
[2017-02-10] MEDS ORDERED: AZIT250T PO (04:09)
--- NOTE | 2017-02-10 04:09 | PHYS DOC ---
Past Medical History Past Medical History: Arthritis, Asthma, Bronchitis, Diabetes-Type II, GERD, Hypertension, Pneumonia, Other Additional Past Medical Histor: CARPAL TUNNEL, GOUT,CELLULITIS Past Surgical History: Other Additional Past Surgical Histo: "ABD SURGERY" Additional Information: Pt. states quit 1 month ago Alcohol Use: None Drug Use: None Adult General Chief Complaint Chief Complaint: SHORTNESS OF BREATH HPI HPI Patient is a 61 year old gentleman who has a history significant for hypertension and diabetes who presents here today complaining of shortness of breath and one half month now. Patient reports over the last 1-2 days gotten worse. Patient reports that he's had a white productive cough for approximately 1-2 weeks however the last couple days to causes increased. Patient reports that he has sharp pain every time he coughs really bad. Patient denies any fevers shakes chills. Patient reports she's had 2 episodes of vomiting earlier today. Patient has any abdominal pain. Patient has any history of coronary artery disease or strokes. No history of CHF. No history of liver problems. Patient reports that he has a history of asthma and bronchitis in the past. Patient reports he smokes tobacco however he hasn't smoked anything in approximately one and half month now. Patient denies any alcohol or drugs. Patient denies any diaphoresis. Patient has any pain radiating down his arms. Patient denies any palpitations. Review of systems: Constitutional: Denies fever or chills Eyes: Denies change in visual acuity, redness, or eye pain HENT: Denies nasal congestion or sore throat All other systems were reviewed and found to be within normal limits, except as documented in this note. Physical exam: Constitutional: Well developed, well nourished, no acute distress, non-toxic appearance. HENT: Normocephalic, atraumatic, bilateral external ears normal Eyes: PERRLA, EOMI, conjunctiva normal, no discharge. Neck: Normal range of motion, no tenderness, supple, no stridor. Cardiovascular:Heart rate regular rhythm Lungs & Thorax: Bilateral breath sounds clear to auscultation Abdomen: Bowel sounds normal, soft, no tenderness, no masses, no pulsatile masses. Skin: Warm, dry, no erythema, no rash. Back: No tenderness, no CVA tenderness. Extremities: No tenderness, no cyanosis, no clubbing, ROM intact, no edema. Neurologic: Alert and oriented X 3, normal motor function, normal sensory function, no focal deficits noted. Psychologic: Affect normal, judgement normal, mood normal. Assessment and plan: 61-year-old gentleman who presents to the ER today secondary to shortness of breath and a cough has been increasing for several days. He denies any fevers shakes chills. While in the ER the patient had received a DuoNeb and steroids. Patient's chest x-ray did not reveal any infiltrates or effusions. No pneumonia. No emesis of pulmonary edema or CHF. Patient's labs were all within normal limits. Patient reports he feels much better after his breathing treatment. Patient reports he does have a nebulizer and inhalers at home ready. Given the patient's symptoms I feel the patient has a bronchitis versus sinusitis. Patient will be started on antibiotics and steroids will be discharged home in stable condition with instructions to follow-up with primary care physician in one to 2 days for reevaluation. Current Medications Current Medications Current Medications Medications (Trade) Dose Ordered Sig/Kamaljit Start Time Stop Time Status Last Admin Dose Admin Albuterol/ Ipratropium (Duoneb) 3 ml 1X ONCE 02/10/17 03:00 02/10/17 03:01 DC 02/10/17 03:06 3 ML Azithromycin (Zithromax) 500 mg 1X ONCE 02/10/17 04:00 02/10/17 04:01 UNV Methylprednisolone Sodium Succinate (SOLU-Medrol 125MG VIAL) 125 mg 1X ONCE 02/10/17 03:00 02/10/17 03:01 DC 02/10/17 02:57 125 MG Potassium Chloride (Klor-Con) 40 meq 1X ONCE 02/10/17 04:00 02/10/17 04:01 UNV Allergies Allergies Allergies Coded Allergies Type Severity Reaction Last Updated Verified codeine Allergy Mild "irritates tip of penis" 10/28/16 Yes Current Patient Data Vital Signs Vital Signs Date Time Temp Pulse Resp B/P (MAP) Pulse Ox O2 Delivery O2 Flow Rate FiO2 02/10/17 03:43 92 21 196/132 (153) 95 Room Air 02/10/17 02:19 98.3 98.3 Lab Values Laboratory Tests Test 02/10/17 02:50 White Blood Count 8.8 x10^3/uL (4.0-11.0) Red Blood Count 4.42 x10^6/uL (4.30-5.70) Hemoglobin 13.0 g/dL (13.0-17.5) Hematocrit 38.2 % (39.0-53.0) L Mean Corpuscular Volume 86 fL (79-100) Mean Corpuscular Hemoglobin 29 pg (25-35) Mean Corpuscular Hemoglobin Concent 34 g/dL (31-37) Red Cell Distribution Width 14.9 % (11.5-14.5) H Platelet Count 303 x10^3/uL (140-400) Neutrophils (%) (Auto) 56 % (31-73) Lymphocytes (%) (Auto) 32 % (24-48) Monocytes (%) (Auto) 7 % (0-9) Eosinophils (%) (Auto) 4 % (0-3) H Basophils (%) (Auto) 2 % (0-3) Neutrophils # (Auto) 4.9 x10^3uL (1.8-7.7) Lymphocytes # (Auto) 2.8 x10^3/uL (1.0-4.8) Monocytes # (Auto) 0.6 x10^3/uL (0.0-1.1) Eosinophils # (Auto) 0.4 x10^3/uL (0.0-0.7) Basophils # (Auto) 0.1 x10^3/uL (0.0-0.2) Sodium Level 138 mmol/L (136-145) Potassium Level 3.1 mmol/L (3.5-5.1) L Chloride Level 98 mmol/L (98-107) Carbon Dioxide Level 31 mmol/L (21-32) Anion Gap 9 (6-14) Blood Urea Nitrogen 10 mg/dL (8-26) Creatinine 0.9 mg/dL (0.7-1.3) Estimated GFR (Cockcroft-Gault) 104.2 BUN/Creatinine Ratio 11 (6-20) Glucose Level 123 mg/dL (70-99) H Calcium Level 9.3 mg/dL (8.5-10.1) Total Bilirubin 0.3 mg/dL (0.2-1.0) Aspartate Amino Transferase (AST) 21 U/L (15-37) Alanine Aminotransferase (ALT) 35 U/L (16-63) Alkaline Phosphatase 80 U/L (46-116) Troponin I Quantitative < 0.017 ng/mL (0.000-0.055) TC-Sbw-B-Type Natriuretic Peptide 45 pg/mL (0-124) Total Protein 8.2 g/dL (6.4-8.2) Albumin 4.0 g/dL (3.4-5.0) Albumin/Globulin Ratio 1.0 (1.0-1.7) Laboratory Tests 02/10/17 02:50 Laboratory Tests 02/10/17 02:50 EKG EKG [] Radiology/Procedures Radiology/Procedures [] Course & Med Decision Making Course & Med Decision Making Pertinent Labs and Imaging studies reviewed. (See chart for details) [] Dragon Disclaimer Dragon Disclaimer This electronic medical record was generated, in whole or in part, using a voice recognition dictation system. Departure Departure Impression: Primary Impression: Bronchitis Additional Impression: Sinusitis Disposition: 01 HOME, SELF-CARE Condition: IMPROVED Referrals: NO PCP (PCP) Patient Instructions: Acute Bronchitis, Sinusitis Scripts Azithromycin (ZITHROMAX) 250 Mg Tablet 1 PKG PO UD, #6 TAB Prov: CORINNA GONZALEZ MD 02/10/17 Prednisone (PREDNISONE) 50 Mg Tablet 1 TAB PO DAILY, #5 TAB Prov: CORINNA GONZALEZ MD 02/10/17 Problem Qualifiers CORINNA GONZALEZ MD Feb 10, 2017 04:09
[2017-02-10] MEDS ORDERED: POTASSIUM CHLORIDE 20 MEQ TABLET.ER. PO ONE (04:30)
--- NOTE | 2017-02-10 07:25 | RAD ---
Chest, 2 views, 02/10/2017: History: Productive cough Comparison is made to a study from 09/24/2016. The heart is at the upper limits of normal in size. The pulmonary vascularity is normal. There are patchy opacities medially in the left base, some component of which was present on the previous study. There also streaky right basilar opacities partially obscuring the hemidiaphragm. The upper lung dawson are clear. There is no evidence of pleural fluid. IMPRESSION: Bibasilar atelectasis and/or pneumonitis with a chronic component on the left. Radiographic follow-up is suggested. If opacities persist, CT scanning may be indicated to exclude an underlying neoplasm.
--- NOTE | 2017-02-10 10:51 | EKG ---
[facility] [address] [place] [address] Test Date: 2017-02-10 Test Time: 02:42:57 Pat Name: RANDY MEDRANO Department: Room: Gender: M Manager Talent: : [phone] Requested By: CORINNA GONZALEZ Order Number: [id number] Reading MD: Haroon Delaney Measurements Intervals [place] Rate: 97 P: 57 HI: 160 QRS: 19 QRSD: 84 T: 29 QT: 334 QTc: 428 Interpretive Statements SINUS RHYTHM LEFT ATRIAL ABNORMALITY ABNORMAL ECG RI6.01 Compared to ECG 09/24/2016 13:18:37 No significant changes Electronically Signed On 02-10-2017 16:04:22 [employer]SEMBLER by Haroon Delaney
== END 2017-02-10 04:19 | disposition home or self-care (01) ==
LOC: ER 02:08
DX: J40 Bronchitis, not specified as acute or chronic (principal); J32.9 Chronic sinusitis, unspecified; M19.90 Unspecified osteoarthritis, unspecified site; J45.909 Unspecified asthma, uncomplicated; E11.9 Type 2 diabetes mellitus without complications; K21.9 Gastro-esophageal reflux disease without esophagitis; I10 Essential (primary) hypertension; M10.9 Gout, unspecified; Z87.01 Personal history of pneumonia (recurrent); Z87.891 Personal history of nicotine dependence; Z88.5 Allergy status to narcotic agent
CPT/HCPCS: 36415; 71020; 80053; 83880; 84484; 85025; 93005; 94250; 94640; 96374; 99285; J2930; J7620; Q0144

== ENCOUNTER 2018-04-13 19:20 | Emergency (ER) | payer OTHER ==
[~2018-04-13] VITALS: Ht 170.2 cm; Wt 90.7 kg
[~2018-04-13 19:20] MED LIST changes: +ALBU2.5V8 IH; +ALBU2.5V8 INH; -AMLO10TA2 PO; +AMLO10TA6 PO; +AZIT250T PO; +HYDR-3164 PO; -HYDR-971 PO; -HYDR12.53 PO; +HYDR12.575 PO; -METO50TA2 PO; +METO50TA6 PO; -PROAIR HFA8.5 GM IH; -PROAIR HFA8.5 GM INH
[2018-04-13 20:06] LABS: BASO # 0.1 x10^3/uL (0.0-0.2); BASO % 1 % (0-3); EOS # 0.4 x10^3/uL (0.0-0.7); EOS % 5 % (0-3); HEMATOCRIT 35.9 % (39.0-53.0); HEMOGLOBIN 12.2 g/dL (13.0-17.5); LYMPH # 2.6 x10^3/uL (1.0-4.8); LYMPH % 32 % (24-48); MEAN CORPUSCULAR HEMOGLOBIN 29 pg (25-35); MEAN CORPUSCULAR HGB CONC 34 g/dL (31-37); MEAN CORPUSCULAR VOLUME 86 fL (79-100); MONO # 0.7 x10^3/uL (0.0-1.1); MONO % 8 % (0-9); NEUT # 4.5 x10^3uL (1.8-7.7); NEUT % 54 % (31-73); PLATELET COUNT 284 x10^3/uL (140-400); RED CELL DISTRIBUTION WIDTH 15.2 % (11.5-14.5); WHITE BLOOD COUNT 8.2 x10^3/uL (4.0-11.0)
[2018-04-13 20:14] LABS: CALCIUM 8.5 mg/dL (8.5-10.1); CREATININE 1.2 mg/dL (0.7-1.3); GFR 74.5; POTASSIUM 3.6 mmol/L (3.5-5.1)
[2018-04-13 20:23] LABS: ALBUMIN 3.7 g/dL (3.4-5.0); ALBUMIN/GLOBULIN RATIO 0.8 (1.0-1.7); TOTAL BILIRUBIN 0.3 mg/dL (0.2-1.0); TOTAL PROTEIN 8.1 g/dL (6.4-8.2)
[2018-04-13 20:47] VITALS: BP 162/84
--- NOTE | 2018-04-13 20:51 | RAD ---
CHEST AP ONLY History: Short of breath, hx of COPD. Comparison: February 10, 2017. Cardiomediastinal silhouette: Stable, mildly enlarged Lungs: Mild markings in both lung bases, compatible with mild atelectasis or fibrosis. No dense airspace consolidation. Pleura: No evidence of pleural effusion. Pneumothorax: None visualized Support Devices: None. Impression: Mild atelectasis or fibrosis in lung bases. Electronically signed by: J Luis Mead MD (04/13/2018 8:47 PM) [facility] [id number]
[2018-04-13] MEDS: HYDROcodone/APAP 5/325MG 1 TAB TABLET PO ONE (21:29)
--- NOTE | 2018-04-13 21:35 | PHYS DOC ---
Past Medical History Past Medical History: Arthritis, Asthma, Bronchitis, Diabetes-Type II, GERD, Hypertension, Pneumonia, Other Additional Past Medical Histor: CARPAL TUNNEL, GOUT,CELLULITIS Past Surgical History: Other Additional Past Surgical Histo: "ABD SURGERY" Alcohol Use: None Drug Use: None Adult General Chief Complaint Chief Complaint: SHORTNESS OF BREATH HPI HPI Patient is a 62 year old male with history of COPD, supplemental O2 dependent, who presents with shortness of breath which is chronic in persistent right leg pain, swelling for the past 3 months. Patient denies fever chills, nausea vomiting or sweats. No chest pain and chest tightness. Denies increased home oxygen use. Patient has not been evaluated for the right leg swelling this past 2 months. He is been previously been seen in this emergency Department for the same. Denies history of DVT or PE. He is not currently on anticoagulation therapy. No other acute symptoms or complaints. He is accompanied at bedside by significant other. [] Review of Systems Review of Systems Review of symptoms as per history of present illness. All other review symptoms are negative. All other systems were reviewed and found to be within normal limits, except as documented in this note. Current Medications Current Medications Current Medications Medications (Trade) Dose Ordered Sig/Kamaljit Start Time Stop Time Status Last Admin Dose Admin Acetaminophen/ Hydrocodone Bitart (Lortab 5/325) 1 tab 1X ONCE 04/13/18 21:30 04/13/18 21:31 DC 04/13/18 21:29 1 TAB Allergies Allergies Allergies Coded Allergies Type Severity Reaction Last Updated Verified codeine Allergy Mild "irritates tip of penis" 10/28/16 Yes Physical Exam Physical Exam Constitutional: Well developed, well nourished, no acute distress, non-toxic appearance. [] HENT: Normocephalic, atraumatic, bilateral external ears normal, oropharynx moist, no oral exudates, nose normal. [] Eyes: PERRLA, EOMI, conjunctiva normal, no discharge. [] Neck: Normal range of motion, no tenderness, supple, no stridor. [] Cardiovascular:Heart rate regular rhythm, no murmur [] Lungs & Thorax: Patient is normally very diminished bilaterally,[] Abdomen: Bowel sounds normal, soft, no tenderness, no masses, no pulsatile masses. [] Extremities: Lower extremity, no motor weakness, right leg swelling approximately 30% larger than left, negative Homans sign, distal pulses 2+ and symmetric[] Neurologic: Alert and oriented X 3, normal motor function, normal sensory function, no focal deficits noted. [] Psychologic: Affect normal, judgement normal, mood normal. [] Current Patient Data Vital Signs Vital Signs Date Time Temp Pulse Resp B/P (MAP) Pulse Ox O2 Delivery O2 Flow Rate FiO2 04/13/18 21:29 20 97 Nasal Cannula 2.0 04/13/18 20:47 62 162/84 (110) 04/13/18 19:30 98.4 98.4 Lab Values Laboratory Tests Test 04/13/18 19:55 White Blood Count 8.2 x10^3/uL (4.0-11.0) Red Blood Count 4.20 x10^6/uL (4.30-5.70) L Hemoglobin 12.2 g/dL (13.0-17.5) L Hematocrit 35.9 % (39.0-53.0) L Mean Corpuscular Volume 86 fL (79-100) Mean Corpuscular Hemoglobin 29 pg (25-35) Mean Corpuscular Hemoglobin Concent 34 g/dL (31-37) Red Cell Distribution Width 15.2 % (11.5-14.5) H Platelet Count 284 x10^3/uL (140-400) Neutrophils (%) (Auto) 54 % (31-73) Lymphocytes (%) (Auto) 32 % (24-48) Monocytes (%) (Auto) 8 % (0-9) Eosinophils (%) (Auto) 5 % (0-3) H Basophils (%) (Auto) 1 % (0-3) Neutrophils # (Auto) 4.5 x10^3uL (1.8-7.7) Lymphocytes # (Auto) 2.6 x10^3/uL (1.0-4.8) Monocytes # (Auto) 0.7 x10^3/uL (0.0-1.1) Eosinophils # (Auto) 0.4 x10^3/uL (0.0-0.7) Basophils # (Auto) 0.1 x10^3/uL (0.0-0.2) Sodium Level 139 mmol/L (136-145) Potassium Level 3.6 mmol/L (3.5-5.1) Chloride Level 102 mmol/L (98-107) Carbon Dioxide Level 31 mmol/L (21-32) Anion Gap 6 (6-14) Blood Urea Nitrogen 18 mg/dL (8-26) Creatinine 1.2 mg/dL (0.7-1.3) Estimated GFR (Cockcroft-Gault) 74.5 BUN/Creatinine Ratio 15 (6-20) Glucose Level 70 mg/dL (70-99) Calcium Level 8.5 mg/dL (8.5-10.1) Total Bilirubin 0.3 mg/dL (0.2-1.0) Aspartate Amino Transferase (AST) 15 U/L (15-37) Alanine Aminotransferase (ALT) 18 U/L (16-63) Alkaline Phosphatase 72 U/L (46-116) Troponin I Quantitative < 0.017 ng/mL (0.000-0.055) CW-Nyp-J-Type Natriuretic Peptide 82 pg/mL (0-124) Total Protein 8.1 g/dL (6.4-8.2) Albumin 3.7 g/dL (3.4-5.0) Albumin/Globulin Ratio 0.8 (1.0-1.7) L Laboratory Tests 04/13/18 19:55 Laboratory Tests 04/13/18 19:55 EKG EKG [EKG: reviewed] Radiology/Procedures Radiology/Procedures [RLE CVUS: Findings of DVT, proximal lymphadenopathy noted] Course & Med Decision Making Course & Med Decision Making Pertinent Labs and Imaging studies reviewed. (See chart for details) [Presents with chronic shortness of breath, without evidence of acute coronary syndrome, congestive heart failure or rhinitis. Right leg pain is chronic without evidence of DVT. 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 He is instructed to follow-up with his asbestos wire finisher and fire management technician for evaluation of his chronic symptoms. Return precautions reviewed. She verbalizes understanding agreement discharge instructions prior to departure..] Taylor Disclaimer Dragon Disclaimer This electronic medical record was generated, in whole or in part, using a voice recognition dictation system. Departure Departure Impression: Primary Impression: Right leg swelling Additional Impression: COPD (chronic obstructive pulmonary disease) Disposition: 01 HOME, SELF-CARE Condition: STABLE Referrals: UNKNOWN PCP NAME (PCP) Patient Instructions: Chronic Obstructive Pulmonary Disease Exacerbation, Easy- to-Read, Peripheral Edema Additional Instructions: You were evaluated in the emergency department for shortness of breath, right leg pain and swelling. Chest x-ray, EKG, labs and ultrasound were performed and are nondiagnostic. Please continue home occasions, where compression stockings and follow up with your asbestos wire finisher and fire management technician in the next 3-5 days for reevaluation. He develop new or worsening symptoms, return to the emergency department. Problem Qualifiers RAYMOND GERBER DO Apr 13, 2018 21:35
--- NOTE | 2018-04-13 21:50 | RAD ---
Ultrasound venous Doppler INDICATION:RT LEG SWELLING SOB TECHNIQUE: Grayscale, color Doppler and spectral waveform ultrasound images of the right lower extremity deep veins obtained. COMPARISON: None FINDINGS: The interrogated deep veins are compressible and demonstrate evidence of blood flow with normal respiratory variation and response to augmentation. Enlarged right groin lymph nodes are seen, the largest measuring 3.3 x 1.0 cm. Right calf soft tissue edema noted. IMPRESSION: 1. No sonographic evidence of acute DVT of the right lower lower extremity deep veins. 2. Right groin lymphadenopathy likely reactive. 3. Calf soft tissue edema. Electronically signed by: Anderson Sanchez DO (04/13/2018 9:46 PM) [facility]
== END 2018-04-13 22:05 | disposition home or self-care (01) ==
LOC: ER 19:20
DX: J44.9 Chronic obstructive pulmonary disease, unspecified (principal); R22.41 Localized swelling, mass and lump, right lower limb; G89.29 Other chronic pain; K21.9 Gastro-esophageal reflux disease without esophagitis; E11.9 Type 2 diabetes mellitus without complications; I10 Essential (primary) hypertension; Z88.5 Allergy status to narcotic agent
CPT/HCPCS: 36415; 71045; 80053; 83880; 84484; 85025; 93971; 99285

== ENCOUNTER 2019-02-15 16:10 | Emergency (ER) | payer OTHER ==
[~2019-02-15] VITALS: Ht 177.8 cm; Wt 90.7 kg
[~2019-02-15 16:10] MED LIST changes: -AMLO10TA6 PO; +AMLO10TA8 PO; +LISI1TAB19 PO; -LISI1TAB5 PO; +OMEP40CA45 PO; -OMEP40CA5 PO
[2019-02-15] MEDS ORDERED: DIPHTH,PERTUSS(ACELL),TET TOX 0.5 ML DISP.SYRIN. VAX IM ONE (16:45)
--- NOTE | 2019-02-15 16:58 | RAD ---
EXAM: Left middle finger, 3 views. HISTORY: Penetrating injury. COMPARISON: None. FINDINGS: 3 views of the left lung finger are obtained. There is no acute fracture, dislocation or subluxation. There is a tiny corticated ossicle at the base of the third proximal phalanx, likely due to the sequela of remote injury. There is minimal spurring involving the second through fourth metacarpal heads. No radiodense foreign body is seen. There is mild third distal interphalangeal joint spurring. IMPRESSION: No acute osseous finding. Electronically signed by: Renee Lopez MD (02/15/2019 4:55 PM) [facility]
--- NOTE | 2019-02-15 17:22 | PHYS DOC ---
Past Medical History Past Medical History: Arthritis, Asthma, Bronchitis, Diabetes-Type II, GERD, Hypertension, Pneumonia, Other Additional Past Medical Histor: CARPAL TUNNEL, GOUT,CELLULITIS Past Surgical History: Other Additional Past Surgical Histo: "ABD SURGERY" Alcohol Use: None Drug Use: None Adult General Chief Complaint Chief Complaint: FINGER INJURY [facility] HPI Patient is a 63 year old AA male who presents to the emergency department with complaints of a wound to the distal palmar aspect of his left middle finger after he accidentally screwed a screw into his finger. Patient states he was trying to mount a plate onto his car when he accidentally screwed into his finger. Patient states he put the drill in reverse and unscrewed the screw from his finger. He denies any numbness, tingling, weakness, or decreased range of motion of the affected finger. He denies any pain at this time. Patient states this injury happened at approximately 3:30 PM. He is unsure of when his last tetanus shot was. All other ROS is neg unless otherwise noted in HPI. Review of Systems Review of Systems See Above Current Medications Current Medications Current Medications Medications (Trade) Dose Ordered Sig/Kamaljit Start Time Stop Time Status Last Admin Dose Admin Diphtheria/ Tetanus/Acell Pertussis (Boostrix) 0.5 ml ONCE ONCE 02/15/19 16:45 02/15/19 16:46 DC 02/15/19 17:08 0.5 ML Allergies Allergies Allergies Coded Allergies Type Severity Reaction Last Updated Verified codeine Allergy Mild "irritates tip of penis" 10/28/16 Yes Physical Exam Physical Exam See Above Constitutional: Well developed, well nourished, no acute distress, non-toxic appearance, obese. [] HENT: Normocephalic, atraumatic, bilateral external ears normal, nose normal. [] Eyes: PERRLA, EOMI, conjunctiva normal, no discharge. [] Neck: Normal range of motion, no stridor. [] Cardiovascular:Heart rate regular rhythm Lungs & Thorax: Respirations even and unlabored, no retractions, no respiratory distress Skin: Warm, dry, no erythema, no rash; 2 mm puncture wound noted to palmar aspect of distal left middle finger, no active bleeding Extremities: L middle finger: No bony tenderness, no cyanosis, no clubbing, ROM intact, no edema. [] Neurologic: Alert and oriented X 3, normal motor function, normal sensory function, no focal deficits noted. [] Psychologic: Affect normal, judgement normal, mood normal. [] Current Patient Data Vital Signs Vital Signs Date Time Temp Pulse Resp B/P (MAP) Pulse Ox O2 Delivery O2 Flow Rate FiO2 02/15/19 16:20 98.1 97 18 191/100 (130) 95 Room Air 98.1 EKG EKG [] Radiology/Procedures Radiology/Procedures PROCEDURE: FINGER(S) LEFT EXAM: Left middle finger, 3 views. HISTORY: Penetrating injury. COMPARISON: None. FINDINGS: 3 views of the left lung finger are obtained. There is no acute fracture, dislocation or subluxation. There is a tiny corticated ossicle at the base of the third proximal phalanx, likely due to the sequela of remote injury. There is minimal spurring involving the second through fourth metacarpal heads. No radiodense foreign body is seen. There is mild third distal interphalangeal joint spurring. IMPRESSION: No acute osseous finding. [] Course & Med Decision Making Course & Med Decision Making Pertinent Labs and Imaging studies reviewed. (See chart for details) [] Dragon Disclaimer Dragon Disclaimer This electronic medical record was generated, in whole or in part, using a voice recognition dictation system. Departure Departure Impression: Primary Impression: Puncture wound of left middle finger without foreign body without damage to nail Additional Impression: Need for Tdap vaccination Disposition: 01 HOME, SELF-CARE Condition: STABLE Referrals: UNKNOWN PCP NAME (PCP) Patient Instructions: Puncture Wound, [id number], VIS, Tetanus, Diphtheria (Td); Tetanus, Diphtheria, Pertussis (Tdap) - CDC Additional Instructions: Fill the prescription(s) and use as directed. You may take tylenol or ibuprofen as needed for pain. Leave the Dressing that was placed in the ER in place for the next 24 hours, then change the dressing twice daily and apply antibiotic ointment. Follow up with your primary care doctor or return to the ER in 48 hours to have wound rechecked. Return to the ER sooner if your symptoms worsen or you develop a fever. Scripts Cephalexin (CEPHALEXIN) 500 Mg Capsule 1 CAP PO TID for 7 Days, #21 CAP 0 Refills Prov: NATASHA PEDRO APRN 02/15/19 Problem Qualifiers Primary Impression: Puncture wound of left middle finger without foreign body without damage to nail Encounter type: initial encounter Qualified Codes: S61.233A - Puncture wound without foreign body of left middle finger without damage to nail, initial encounter NATASHA PEDRO NUCLEAR MEDICINE SPECIALIST Feb 15, 2019 17:22
[2019-02-15] MEDS ORDERED: CEPH500C PO (17:48)
[2019-02-15 17:59] VITALS: BP 182/88
== END 2019-02-15 18:05 | disposition home or self-care (01) ==
LOC: ER 16:10
DX: S61.233A Puncture wound without foreign body of left middle finger without damage to nail, initial encounter (principal); J45.909 Unspecified asthma, uncomplicated; E11.9 Type 2 diabetes mellitus without complications; K21.9 Gastro-esophageal reflux disease without esophagitis; I10 Essential (primary) hypertension; Z88.5 Allergy status to narcotic agent; W23.0XXA Caught, crushed, jammed, or pinched between moving objects, initial encounter; Y93.89 Activity, other specified; Y92.89 Other specified places as the place of occurrence of the external cause; Y99.8 Other external cause status
CPT/HCPCS: 73140; 90471; 90715; 99284

== ENCOUNTER 2019-06-14 12:59 | Emergency (ER) | payer OTHER ==
[~2019-06-14] VITALS: Ht 167.6 cm; Wt 95.4 kg
[~2019-06-14 12:59] MED LIST changes: +CEPH500C PO; -CETI10TA22 PO; +CETI10TA24 PO
--- NOTE | 2019-06-14 13:48 | PHYS DOC ---
Past Medical History Past Medical History: Arthritis, Asthma, Bronchitis, Diabetes-Type II, GERD, Hypertension, Pneumonia, Other Additional Past Medical Histor: CARPAL TUNNEL, GOUT,CELLULITIS (SHERRY VILLA APRN) Past Surgical History: Other Additional Past Surgical Histo: "ABD SURGERY" (SHERRY VILLA APRN) Smoking Status: Former Smoker Alcohol Use: None Drug Use: None (SHERRY VILLA APRN) Adult General Chief Complaint Chief Complaint: HIP PAIN HPI HPI Patient is a 63 year old male who presents with states for the last month he has had right lower leg swelling. He states that it is painful as a dull aching pain and mainly to the anterior lateral side of the leg. Patient rates his pain a 10 out of 10. Patient denies chest pain, shortness of breath, dizziness, headache, nausea, vomiting, visual changes, numbness or tingling, focal weakness. He is ambulatory with a steady gait using a cane. (SHERRY VILLA APRN) Review of Systems Review of Systems Musculoskeletal: Right lower leg pain. Denies back pain or joint pain [] All other systems were reviewed and found to be within normal limits, except as documented in this note. (SHERRY VILLA APRN) Allergies Allergies Allergies Coded Allergies Type Severity Reaction Last Updated Verified codeine Allergy Mild "irritates tip of penis" 10/28/16 Yes (ELEAZAR AGUILAR MD) Physical Exam Physical Exam Constitutional: Well developed, well nourished, no acute distress, non-toxic appearance. [] HENT: Normocephalic, atraumatic, bilateral external ears normal, oropharynx moist, no oral exudates, nose normal. [] Eyes: PERRLA, EOMI, conjunctiva normal, no discharge. [] Neck: Normal range of motion, no tenderness, supple, no stridor. [] Cardiovascular:Heart rate regular rhythm, no murmur [] Lungs & Thorax: Bilateral upper breath sounds clear and lower diminished to auscultation [] Abdomen: Bowel sounds normal, soft, no tenderness, no masses, no pulsatile masses. [] Skin: Warm, dry, no erythema, no rash. [] Back: No tenderness, no CVA tenderness. [] Extremities: No tenderness, no cyanosis, no clubbing, ROM intact, right lower le g 2-3+ edema. [] Neurologic: Alert and oriented X 3, normal motor function, normal sensory function, no focal deficits noted. [] Psychologic: Affect normal, judgement normal, mood normal. [] (SHERRY VILLA APRN) Current Patient Data Vital Signs Vital Signs Date Time Temp Pulse Resp B/P (MAP) Pulse Ox O2 Delivery O2 Flow Rate FiO2 06/14/19 15:40 65 20 139/79 (99) 99 Nasal Cannula 2.0 06/14/19 13:16 98.4 98.4 (ELEAZAR AGUILAR MD) Lab Values Laboratory Tests Test 06/14/19 14:00 White Blood Count 6.6 x10^3/uL (4.0-11.0) Red Blood Count 4.37 x10^6/uL (4.30-5.70) Hemoglobin 12.4 g/dL (13.0-17.5) L Hematocrit 37.3 % (39.0-53.0) L Mean Corpuscular Volume 85 fL (79-100) Mean Corpuscular Hemoglobin 28 pg (25-35) Mean Corpuscular Hemoglobin Concent 33 g/dL (31-37) Red Cell Distribution Width 14.4 % (11.5-14.5) Platelet Count 361 x10^3/uL (140-400) Neutrophils (%) (Auto) 53 % (31-73) Lymphocytes (%) (Auto) 29 % (24-48) Monocytes (%) (Auto) 8 % (0-9) Eosinophils (%) (Auto) 8 % (0-3) H Basophils (%) (Auto) 1 % (0-3) Neutrophils # (Auto) 3.5 x10^3/uL (1.8-7.7) Lymphocytes # (Auto) 1.9 x10^3/uL (1.0-4.8) Monocytes # (Auto) 0.5 x10^3/uL (0.0-1.1) Eosinophils # (Auto) 0.5 x10^3/uL (0.0-0.7) Basophils # (Auto) 0.1 x10^3/uL (0.0-0.2) Prothrombin Time 14.1 SEC (11.7-14.0) H Prothrombin Time INR 1.1 (0.8-1.1) Sodium Level 141 mmol/L (136-145) Potassium Level 3.8 mmol/L (3.5-5.1) Chloride Level 101 mmol/L (98-107) Carbon Dioxide Level 34 mmol/L (21-32) H Anion Gap 6 (6-14) Blood Urea Nitrogen 11 mg/dL (8-26) Creatinine 1.0 mg/dL (0.7-1.3) Estimated GFR (Cockcroft-Gault) 91.6 BUN/Creatinine Ratio 11 (6-20) Glucose Level 144 mg/dL (70-99) H Calcium Level 8.5 mg/dL (8.5-10.1) Total Bilirubin 0.5 mg/dL (0.2-1.0) Aspartate Amino Transferase (AST) 14 U/L (15-37) L Alanine Aminotransferase (ALT) 23 U/L (16-63) Alkaline Phosphatase 87 U/L (46-116) Troponin I Quantitative < 0.017 ng/mL (0.000-0.055) EH-Aqx-J-Type Natriuretic Peptide 54 pg/mL (0-124) Total Protein 8.3 g/dL (6.4-8.2) H Albumin 3.7 g/dL (3.4-5.0) Albumin/Globulin Ratio 0.8 (1.0-1.7) L Laboratory Tests 06/14/19 14:00 Laboratory Tests 06/14/19 14:00 (ELEAZAR AGUILAR MD) Lab Values Laboratory Tests Test 06/14/19 14:00 White Blood Count 6.6 x10^3/uL (4.0-11.0) Red Blood Count 4.37 x10^6/uL (4.30-5.70) Hemoglobin 12.4 g/dL (13.0-17.5) L Hematocrit 37.3 % (39.0-53.0) L Mean Corpuscular Volume 85 fL (79-100) Mean Corpuscular Hemoglobin 28 pg (25-35) Mean Corpuscular Hemoglobin Concent 33 g/dL (31-37) Red Cell Distribution Width 14.4 % (11.5-14.5) Platelet Count 361 x10^3/uL (140-400) Neutrophils (%) (Auto) 53 % (31-73) Lymphocytes (%) (Auto) 29 % (24-48) Monocytes (%) (Auto) 8 % (0-9) Eosinophils (%) (Auto) 8 % (0-3) H Basophils (%) (Auto) 1 % (0-3) Neutrophils # (Auto) 3.5 x10^3/uL (1.8-7.7) Lymphocytes # (Auto) 1.9 x10^3/uL (1.0-4.8) Monocytes # (Auto) 0.5 x10^3/uL (0.0-1.1) Eosinophils # (Auto) 0.5 x10^3/uL (0.0-0.7) Basophils # (Auto) 0.1 x10^3/uL (0.0-0.2) Prothrombin Time 14.1 SEC (11.7-14.0) H Prothrombin Time INR 1.1 (0.8-1.1) Sodium Level 141 mmol/L (136-145) Potassium Level 3.8 mmol/L (3.5-5.1) Chloride Level 101 mmol/L (98-107) Carbon Dioxide Level 34 mmol/L (21-32) H Anion Gap 6 (6-14) Blood Urea Nitrogen 11 mg/dL (8-26) Creatinine 1.0 mg/dL (0.7-1.3) Estimated GFR (Cockcroft-Gault) 91.6 BUN/Creatinine Ratio 11 (6-20) Glucose Level 144 mg/dL (70-99) H Calcium Level 8.5 mg/dL (8.5-10.1) Total Bilirubin 0.5 mg/dL (0.2-1.0) Aspartate Amino Transferase (AST) 14 U/L (15-37) L Alanine Aminotransferase (ALT) 23 U/L (16-63) Alkaline Phosphatase 87 U/L (46-116) Troponin I Quantitative < 0.017 ng/mL (0.000-0.055) NF-Mto-U-Type Natriuretic Peptide 54 pg/mL (0-124) Total Protein 8.3 g/dL (6.4-8.2) H Albumin 3.7 g/dL (3.4-5.0) Albumin/Globulin Ratio 0.8 (1.0-1.7) L Laboratory Tests 06/14/19 14:00 Laboratory Tests 06/14/19 14:00 (SHERRY VILLA APRN) EKG EKG Sinus Rhythm and no STEMI[] Interpretation Time: [address] Aguilar (SHERRY VILLA APRN) Radiology/Procedures Radiology/Procedures [] (SHERRY VILLA APRN) Impressions: [facility] [address] [place] [address] IMAGING REPORT Signed PATIENT: RANDY MEDRANO ACCOUNT: [id number] : 1955 LOCATION: ER AGE: 63 SEX: M EXAM STATUS: REG ER ORD. PHYSICIAN: SHERRY VILLA APRN REASON: SHORT OF BREATH PROCEDURE: CHEST PA & LATERAL AP and Lateral Views of the Chest 06/14/2019 12:00 AM Indication: Shortness of breath Comparison: Chest radiograph February 10, 2017 Findings: Similar volume loss in the right lower possibly related to scarring or chronic atelectasis is seen. Heart size is stable and grossly normal. No pneumothorax or definitive effusion is seen. No new infiltrate is seen. No acute bony changes are seen. Impression: No evidence of acute cardiopulmonary process or acute change from prior exam Electronically signed by: Hola Garcia MD (06/14/2019 2:39 PM) [id number] DICTATED and SIGNED BY: HOLA GARCIA MD DATE: 06/14/19 [id number] [place] [address] IMAGING REPORT Signed PATIENT: RANDY MEDRANO ACCOUNT: [id number] : 1955 LOCATION: ER AGE: 63 SEX: M EXAM STATUS: REG ER ORD. PHYSICIAN: SHERRY VILLA APRN REASON: Unilateral swelling and pain PROCEDURE: VENOUS LOWER EXTREMITY RIGHT Right lower extremity venous Doppler ultrasound History: Right leg swelling and pain. Comparison: Right lower extremity venous Doppler ultrasound 04/13/2018. Procedure: Color flow Doppler, Doppler spectral analysis, and 2D images are obtained with and without compression in the area of the common femoral vein, superficial femoral vein - femoral vein junction, main femoral vein (superficial femoral vein) and popliteal vein. Veins of the proximal calf are also imaged. Findings: There is normal color flow, augmentation, and compressibility of all visualized vein segments. No evidence of deep venous thrombus is present. Right inguinal adenopathy appears stable. IMPRESSION: 1. No evidence of right lower extremity deep venous thrombosis. 2. Right groin adenopathy is unchanged and may be reactive. Electronically signed by: Lexi Cortez MD (06/14/2019 2:44 PM) [id number] DICTATED and SIGNED BY: LEXI CORTEZ MD DATE: 06/14/19 1444 (SHERRY VILLA APRN) Course & Med Decision Making Course & Med Decision Making Pertinent Labs and Imaging studies reviewed. (See chart for details) Patient has 2-3+ edema to the right lower leg that goes up approximately half-way up the vogel. Cap refill less than 3 seconds. Skin is pink warm and dry and flaky. No wounds, blisters or rashes are seen. Lungs are clear in upper lobes but diminished in lower lobes. Alert and oriented. Speaks in full clear sentences. PERRLA. Patient has a history of COPD, diabetes type 2, cellulitis, GERD, hypertension. Blood work unremarkable. EKG unremarkable. US no acute findings. Chest xray with no acute findings. I have discussed the care plan of this patient to Dr Aguilar. The patient will be sent home with soren hose and to follow up with primary care provider. [] (SHERRY VILLA APRN) Course & Med Decision Making Staff Physician Addendum: I was working in the ER during the course of this patient's visit. I was a vailable for consultation as needed, but I was not directly involved in the care of this patient. (ELEAZAR AGUILAR MD) Dragon Disclaimer Dragon Disclaimer This electronic medical record was generated, in whole or in part, using a voice recognition dictation system. (SHERRY VILLA APRN) Departure Departure Impression: Primary Impression: Leg swelling Disposition: 01 HOME, SELF-CARE Condition: STABLE Referrals: AARON CHAVEZ (PCP) Patient Instructions: Peripheral Edema Additional Instructions: Follow up with your primary care physician as soon as possible. Wear the Soren hose all day. Elevate legs when sitting. SHERRY VILLA APRN Jun 14, 2019 13:48 ELEAZAR AGUILAR MD Jun 15, 2019 06:35
[2019-06-14 14:16] LABS: BASO # 0.1 x10^3/uL (0.0-0.2); BASO % 1 % (0-3); EOS # 0.5 x10^3/uL (0.0-0.7); EOS % 8 % (0-3); HEMATOCRIT 37.3 % (39.0-53.0); HEMOGLOBIN 12.4 g/dL (13.0-17.5); LYMPH # 1.9 x10^3/uL (1.0-4.8); LYMPH % 29 % (24-48); MEAN CORPUSCULAR HEMOGLOBIN 28 pg (25-35); MEAN CORPUSCULAR HGB CONC 33 g/dL (31-37); MEAN CORPUSCULAR VOLUME 85 fL (79-100); MONO # 0.5 x10^3/uL (0.0-1.1); MONO % 8 % (0-9); NEUT # 3.5 x10^3/uL (1.8-7.7); NEUT % 53 % (31-73); PLATELET COUNT 361 x10^3/uL (140-400); RED BLOOD COUNT 4.37 x10^6/uL (4.30-5.70); RED CELL DISTRIBUTION WIDTH 14.4 % (11.5-14.5); WHITE BLOOD COUNT 6.6 x10^3/uL (4.0-11.0)
[2019-06-14 14:24] LABS: PROTHROMBIN TIME PATIENT 14.1 SEC (11.7-14.0)
[2019-06-14 14:26] LABS: CALCIUM 8.5 mg/dL (8.5-10.1); GFR 91.6; POTASSIUM 3.8 mmol/L (3.5-5.1)
[2019-06-14 14:32] LABS: ALBUMIN 3.7 g/dL (3.4-5.0); ALBUMIN/GLOBULIN RATIO 0.8 (1.0-1.7); TOTAL BILIRUBIN 0.5 mg/dL (0.2-1.0); TOTAL PROTEIN 8.3 g/dL (6.4-8.2)
--- NOTE | 2019-06-14 14:41 | RAD ---
AP and Lateral Views of the Chest 06/14/2019 12:00 AM Indication: Shortness of breath Comparison: Chest radiograph February 10, 2017 Findings: Similar volume loss in the right lower possibly related to scarring or chronic atelectasis is seen. Heart size is stable and grossly normal. No pneumothorax or definitive effusion is seen. No new infiltrate is seen. No acute bony changes are seen. Impression: No evidence of acute cardiopulmonary process or acute change from prior exam Electronically signed by: Hola Juárez MD (06/14/2019 2:39 PM) [id number]
--- NOTE | 2019-06-14 14:47 | RAD ---
Right lower extremity venous Doppler ultrasound History: Right leg swelling and pain. Comparison: Right lower extremity venous Doppler ultrasound 04/13/2018. Procedure: Color flow Doppler, Doppler spectral analysis, and 2D images are obtained with and without compression in the area of the common femoral vein, superficial femoral vein - femoral vein junction, main femoral vein (superficial femoral vein) and popliteal vein. Veins of the proximal calf are also imaged. Findings: There is normal color flow, augmentation, and compressibility of all visualized vein segments. No evidence of deep venous thrombus is present. Right inguinal adenopathy appears stable. IMPRESSION: 1. No evidence of right lower extremity deep venous thrombosis. 2. Right groin adenopathy is unchanged and may be reactive. Electronically signed by: Abdoulaye Cortez MD (06/14/2019 2:44 PM) [id number]
--- NOTE | 2019-06-14 15:11 | EKG ---
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
[2019-06-14 15:40] VITALS: BP 139/79
== END 2019-06-14 15:41 | disposition home or self-care (01) ==
LOC: ER 12:59
DX: R60.0 Localized edema (principal); M79.604 Pain in right leg; J45.909 Unspecified asthma, uncomplicated; E11.9 Type 2 diabetes mellitus without complications; K21.9 Gastro-esophageal reflux disease without esophagitis; I10 Essential (primary) hypertension; M10.9 Gout, unspecified; Z87.891 Personal history of nicotine dependence; Z88.5 Allergy status to narcotic agent
CPT/HCPCS: 36415; 71046; 80053; 83880; 84484; 85025; 85610; 93005; 93971; 99285-25

== ENCOUNTER 2020-11-25 20:56 | Emergency (ER) | payer OTHER ==
[~2020-11-25] VITALS: Ht 167.6 cm; Wt 104.5 kg
[~2020-11-25 20:56] MED LIST changes: +AMLO-187 PO; -AMLO10TA8 PO; -CETI10TA24 PO; +CETI10TA74 PO; -LISI1TAB19 PO; +LISI1TAB37 PO; -OMEP40CA45 PO; +OMEP40CA7 PO
[2020-11-25 21:05] VITALS: BP 138/73
== END 2020-11-25 23:47 | disposition left against medical advice (07) ==
LOC: ER 20:56
DX: R05 Cough (principal); J44.9 Chronic obstructive pulmonary disease, unspecified; Z53.21 Procedure and treatment not carried out due to patient leaving prior to being seen by health care provider